=== PATIENT | male | born 1965 | race Caucasian/White ===

== ENCOUNTER 2017-03-07 09:53 | Day surgery (SDC) | payer OTHER ==
[~2017-03-07] VITALS: Ht 167.6 cm; Wt 70.8 kg
[~2017-03-07 09:53] MED LIST: CIPR500T3 PO; CLONI1TA PO; DULO1CAP PO; LOSA50TA20 PO; METH1TAB40 PO; OMEP20CA3 PO; OXYC1TAB23 PO; PERCOCET PO; PIRO20CA2 PO; ROPI0.5T PO; VITA100067 PO
[2017-03-07] MEDS ORDERED: NS 1,000 ML IV SCH (10:00)
[2017-03-07] MEDS ORDERED: LIDOCAINE 2% INJ 100 MG/5 ML SDV (FOR ANES.) As Ordered ONE ×2 (11:44→11:52)
[2017-03-07] MEDS ORDERED: PROPOFOL 200 MG/20 ML VIAL As Ordered ONE ×3 (11:44→11:57)
--- NOTE | 2017-03-07 12:24 | ROOR ---
Patient Name: Joel Shane Procedure Date: 03/07/2017 11:44 AM Date of : 1965 Age: 51 Room: [facility] Gender: Male Note Status: Finalized Procedure: Upper GI endoscopy Indications: For therapy of esophageal reflux, Assessment following Luis Miguel fundoplication Providers: Ashvin PAINTER MD Referring MD: NEMESIO HERR MD Requesting Provider: Medicines: Monitored Anesthesia Care Complications: Brief Hypoxia, treated with bagging with face mask and administration of oxygen with prompt recovery of O2 saturation. Procedure: Pre-Anesthesia Assessment: - The heart rate, respiratory rate, oxygen saturations, blood pressure, adequacy of pulmonary ventilation, and response to care were monitored throughout the procedure. The Endoscope was introduced through the mouth, and advanced to the second part of duodenum. The upper GI endoscopy was accomplished without difficulty. The patient tolerated the procedure well. Findings: The examined esophagus was normal. Biopsies were taken with a cold forceps for histology. The Z-line was regular and was found 35 cm from the incisors. A medium-sized hiatal hernia was present. The entire examined stomach was normal. The examined duodenum was normal. The CanoP capsule with delivery system was introduced through the mouth and advanced into the esophagus, such that the BOTELLO pH capsule was positioned 30 cm from the incisors, which was 5 cm proximal to the GE junction. The BOTELLO pH capsule was then deployed and attached to the esophageal mucosa. The delivery system was then withdrawn. Endoscopy was utilized for probe placement and diagnostic evaluation. Impression: - Normal esophagus. Biopsied. - Z-line regular, 35 cm from the incisors. - Medium-sized hiatal hernia. - Normal stomach. - Normal examined duodenum. - The BOTELLO pH capsule was deployed. Recommendation: - Telephone endoscopist for study results in 2 weeks. - Instructions: Avoid all reflux medications for next 48 hrs. (i.e. Avoid all the following for the next 48 hours: Prilosec/Omeprazole, Nexium, Prevacid/Lansoprazole, Dexilant, Zegerid/Omeprazole, Aciphex/Rabeprazole, Protonix/Pantoprazole, Zantac/Ranitidine, Pepcid/Famotidine, Tagamet). You may take tums, rolaids or maalox for severe symptoms, but try to limit this as well. Do not try to avoid your usual triggers for your symptoms for next 48 hrs. (If you have known "triggers" for your symptoms such as caffeine, fatty foods, laying down after meals etc, it is actually encouraged that you do try to produce your symptoms as much as possible over next 48 hrs.) Ashvin Painter MD Ashvin PAINTER MD 03/07/2017 12:24:26 PM This report has been signed electronically. Number of Addenda: 0 Note Initiated On: 03/07/2017 11:44 AM Estimated Blood Loss: Estimated blood loss: none.
[2017-03-07 12:51] VITALS: BP 111/65
== END 2017-03-07 13:00 | disposition home or self-care (01) ==
LOC: M OPP 09:53
PROVIDERS: ATTEND Internal Medicine Gastroenterology
DX: Z09 Encounter for follow-up examination after completed treatment for conditions other than malignant neoplasm (principal); Z98.890 Other specified postprocedural states; K21.9 Gastro-esophageal reflux disease without esophagitis; K44.9 Diaphragmatic hernia without obstruction or gangrene; R00.8 Other abnormalities of heart beat; I10 Essential (primary) hypertension; R12 Heartburn; M54.9 Dorsalgia, unspecified; Z85.828 Personal history of other malignant neoplasm of skin; R06.83 Snoring; M19.90 Unspecified osteoarthritis, unspecified site; Z87.442 Personal history of urinary calculi; Z79.899 Other long term (current) drug therapy

== ENCOUNTER 2017-10-04 21:31 | Emergency (ER) | payer OTHER ==
[2017-10-04] MEDS: MORPHINE 4 MG/ML 1ML VIAL/SYRINGE (J2270) IV (22:15)
[2017-10-04 22:55] LABS: ANION GAP 10 MEQ/L (8-16); BLOOD UREA NITROGEN 18 MG/DL (7-18); CALCIUM LEVEL 8.8 MG/DL (8.5-10.1); CARBON DIOXIDE LEVEL 21 MEQ/L (21-32); CHLORIDE LEVEL 113 MEQ/L (98-107); CREATININE FOR GFR 1.21 MG/DL (0.70-1.30); GLOMERULAR FILTRATION RATE > 60.0 (>56); GLUCOSE, FASTING 100 MG/DL (70-100); POTASSIUM SERUM 4.3 MEQ/L (3.5-5.1); SODIUM LEVEL 144 MEQ/L (136-145)
[2017-10-04] MEDS: HYDROMORPHONE HCL 0.5 MG/ 0.5 ML SYRINGE (J1170 PER 1) IV (23:03)
== END 2017-10-04 23:53 | disposition home or self-care (01) ==
LOC: M ED 21:31
DX: S83.015A Lateral dislocation of left patella, initial encounter (principal); W01.0XXA Fall on same level from slipping, tripping and stumbling without subsequent striking against object, initial encounter; Y92.098 Other place in other non-institutional residence as the place of occurrence of the external cause; R00.0 Tachycardia, unspecified; I10 Essential (primary) hypertension; K21.9 Gastro-esophageal reflux disease without esophagitis; Z79.899 Other long term (current) drug therapy
CPT/HCPCS: J2270

== ENCOUNTER 2018-01-02 13:45 | Inpatient (IN) | payer OTHER ==
[2018-01-02 15:06] LABS: HEMOGLOBIN 13.6 g/dl (13.5-17.5); MEAN CORPUSCULAR HEMOGLOBIN 30.8 pg (27.0-33.0); MEAN CORPUSCULAR HGB CONC 33.2 g/dl (32.0-36.5); PLATELET COUNT, AUTOMATED 268 10^3/uL (150-450); RED BLOOD COUNT 4.41 10^6/uL (4.30-6.10); RED CELL DISTRIBUTION WIDTH 13.2 % (11.5-14.5); WHITE BLOOD COUNT 7.4 10^3/uL (4.0-10.0)
[2018-01-02 15:54] LABS: ACETAMINOPHEN LEVEL < 2.0 UG/ML (10.0-30.0); ALBUMIN 4.2 GM/DL (3.2-5.2); ALKALINE PHOSPHATASE 78 U/L (45-117); ALT/SGPT 20 U/L (12-78); ANION GAP 6 MEQ/L (8-16); AST/SGOT 16 U/L (7-37); BILIRUBIN,DIRECT 0.2 MG/DL (0.0-0.2); BILIRUBIN,TOTAL 0.7 MG/DL (0.2-1.0); BLOOD UREA NITROGEN 12 MG/DL (7-18); CALCIUM LEVEL 8.9 MG/DL (8.5-10.1); CARBON DIOXIDE LEVEL 29 MEQ/L (21-32); CHLORIDE LEVEL 106 MEQ/L (98-107); CREATININE FOR GFR 0.98 MG/DL (0.70-1.30); ETHYL ALCOHOL (ETHANOL) < 0.003 % (0.000-0.010); GLOMERULAR FILTRATION RATE > 60.0 (>56); GLUCOSE, FASTING 84 MG/DL (70-100); POTASSIUM SERUM 4.2 MEQ/L (3.5-5.1); SALICYLATE LEVEL < 1.7 MG/DL (5.0-30.0); SODIUM LEVEL 141 MEQ/L (136-145); TOTAL PROTEIN 7.2 GM/DL (6.4-8.2)
[2018-01-02 16:03] LABS: AMPHETAMINES LEVEL URINE NEGATIVE (NEGATIVE); BARBITURATES URINE NEGATIVE (NEGATIVE); BENZODIAZEPINES URINE NEGATIVE (NEGATIVE); CANNABINOIDS URINE NEGATIVE (NEGATIVE); COCAINE METABOLITE URINE NEGATIVE (NEGATIVE); METHADONE URINE NEGATIVE (NEGATIVE); OPIATES URINE NEGATIVE (NEGATIVE); PHENCYCLIDINE URINE NEGATIVE (NEGATIVE)
[2018-01-02] MEDS ORDERED: MAALOX 30 ML SUSP *UDC PO (22:15)
[2018-01-02] MEDS ORDERED: traZODone 50 MG TAB PO (22:15)
[2018-01-02] MEDS ORDERED: MOM 30ML SUSPENSION UDC PO (22:15)
[2018-01-02] MEDS ORDERED: ACETAMINOPHEN TAB 650MG DOSE (2X325MG) PO (22:15)
[2018-01-03] MEDS: LOSARTAN 50 MG TAB PO (09:00)
[2018-01-03] MEDS: INFLUENZA QUADRIVALENT PF VACCINE 0.5ML SYRINGE (90686) IM (10:00)
[2018-01-03] MEDS: PARoxetine 20 MG TAB PO (14:05)
[2018-01-03] MEDS: QUEtiapine FUMARATE 25 MG TAB PO (21:22)
[2018-01-03] MEDS: PRAZOSIN 1 MG CAP PO (21:22)
[2018-01-04] MEDS: LOSARTAN 50 MG TAB PO (09:00)
[2018-01-04] MEDS: PARoxetine 20 MG TAB PO (09:01)
== END 2018-01-04 15:45 | disposition home or self-care (01) | DRG 885 ==
LOC: M PSY 01-03 00:57 → M ED 13:45 → M ED INP 22:06
DX: F33.9 Major depressive disorder, recurrent, unspecified (principal); R45.851 Suicidal ideations; F41.1 Generalized anxiety disorder; F43.10 Post-traumatic stress disorder, unspecified; I10 Essential (primary) hypertension; K21.9 Gastro-esophageal reflux disease without esophagitis; Z79.899 Other long term (current) drug therapy

== ENCOUNTER 2021-07-16 22:46 | Emergency (ER) | payer OTHER ==
[~2021-07-16] VITALS: Ht 167.6 cm; Wt 70.9 kg
[~2021-07-16 22:46] MED LIST changes: +BUPR150T12 PO; -DULO1CAP PO; +DULO1CAP4 PO; -LOSA50TA20 PO; +LOSA50TA28 PO; +METH-1164 PO; -METH1TAB40 PO; +MULTCAP PO; +OMEP1CAP73 PO; -OMEP20CA3 PO; +PARO20TA4 PO; +PAXI40TA10 PO; +PRAZ2CAP PO; -ROPI0.5T PO; +ROPI0.5T3 PO; +SERO1TAB3 PO
[2021-07-16 22:47] VITALS: BP 151/80
[2021-07-16] MEDS ORDERED: VITA100093 (22:57)
[2021-07-16] MEDS ORDERED: GABA-1171 (22:57)
[2021-07-16] MEDS ORDERED: PANT20TA6 (22:57)
[2021-07-16] MEDS ORDERED: FAMO1TAB11 (22:57)
[2021-07-16] MEDS ORDERED: DULO1CAP4 (22:57)
== END 2021-07-17 00:30 | disposition left against medical advice (07) ==
LOC: M ED 22:46
DX: Z53.21 Procedure and treatment not carried out due to patient leaving prior to being seen by health care provider (principal)

== ENCOUNTER → 2021-10-18 | Outpatient (REF) | payer OTHER ==
[~2021-10-18] MED LIST changes: +DULO1CAP4; +FAMO1TAB11; +GABA-1171; +PANT20TA6; +VITA100093
== END ==
LOC: M LAB REF 16:44
PROVIDERS: ATTEND Physician Assistant Medical
DX: A69.20 Lyme disease, unspecified (principal)

== ENCOUNTER → 2023-03-01 | Day surgery (SDC) | payer OTHER ==
[~2023-03-01] VITALS: Ht 167.6 cm; Wt 74.8 kg
[~2023-03-01] MED LIST changes: +BACITRACIN OINTMENT 30GM TUBE As Ordered ONE; -DULO1CAP4; -FAMO1TAB11; +FAMO1TAB11 PO; +LIDOCAINE W/EPINEPHRINE 1% 20ML VIAL XX ONE; +OMEG1CAP85 PO; +OXYC-1 PO; -PANT20TA6; +PANT20TA6 PO; -PAXI40TA10 PO; +PAXI40TA12 PO; -ROPI0.5T3 PO; +ROPI0.5T33 PO; +SODIUM BICARBONATE 8.4% INJ 50MEQ 50ML VIAL XX ONE; -VITA100093; +VITA100093 PO; +VITMTA PO
[2023-03-01 08:08] VITALS: BP 148/76; TEMP 98.5; O2SAT 95
== END | disposition home or self-care (01) ==
LOC: M SDC 06:17
PROVIDERS: ATTEND Orthopaedic Surgery Hand Surgery
DX: M65.332 Trigger finger, left middle finger (principal); Z87.891 Personal history of nicotine dependence
CPT/HCPCS: 26055; J0665